=== PATIENT | female | born 1960 | race Caucasian/White ===

== ENCOUNTER 2017-10-20 17:05 | Emergency (ER) | payer OTHER ==
[2017-10-20 17:23] VITALS: BP 141/85
[2017-10-20] MEDS ORDERED: Aspirin 81 mg CHEW TAB* 81 MG TAB.CHEW PO ONE (17:50)
--- NOTE | 2017-10-20 18:46 | UC ---
Rashawn Knight Nikita, scribed for Eduardo Griffith MD on 10/20/17 at 1740 . Cardiac HPI - HPI Summary HPI Summary: This patient is a 57 year old F presenting to [facility] with a chief complaint of retroexternal chest pressure since yesterday. The patient has been helping her daughter move her stuff into storage and from that she has developed this chest pressure. The CC is described as intermittent starting last night. The patient rates the pain 1/10 in severity. Symptoms aggravated by exertion. Symptoms alleviated by rest. Patient denies nausea, vomiting, and diaphoresis. The patient reports she has no PMHx except in the last couple visits to her doctor, she had increase in BP and slight increase in cholesterol without medications. - History of Current Complaint Chief Complaint: UCChestPain Stated Complaint: CHEST CONGESTION Time Seen by Provider: 10/20/17 17:26 Hx Obtained From: Patient Hx Last Menstrual Period: perimenopause Onset/Duration: Sudden Onset, Lasting Days - last night Timing: Intermittent Episodes Lasting: Current Severity: Mild Pain Intensity: 1 Chest Pain Location: Discrete at: - retroexternal chest pressure Character: Pressure/Squeezing Aggravating Factor(s): Exertion Alleviating Factor(s): Rest Associated Signs & Symptoms: Positive: Chest Pain - Patient denies nausea, vomiting, and diaphoresis. - Allergy/Home Medications Allergies/Adverse Reactions: Allergies Allergy/AdvReac Type Severity Reaction Status Date / Time No Known Allergies Allergy Verified 10/20/17 18:19 Home Medications: Home Medications Aspirin mg PO 10/20/17 [History] Cetirizine HCl [Zyrtec] 10/20/17 [History] Famotidine [Acid Controller] 20 mg PO 10/20/17 [History] Fluticasone Propionate [Flovent Hfa] 10/20/17 [History Confirmed 10/20/17] Multivit-Min/Iron Fum/Folic AC [Xykia-Vrwcybh-Qkpzqzed Tablet] 10/20/17 [ History] PMH/Surg Hx/FS Hx/Imm Hx Endocrine History: Other Other Endocrine History: No DM Respiratory History: Asthma - Surgical History Surgery Procedure, Year, and Place: total hip replacement june 19, 2017. total hip September 2013 - Family History Known Family History: Negative: Diabetes - Social History Alcohol Use: Daily Substance Use Type: None Smoking Status (MU): Never Smoked Tobacco Review of Systems Constitutional: Other - denies diaphoresis Cardiovascular: Chest Pain - R-sided, pressure, radiating to mid chest Gastrointestinal: Other - Patient denies nausea and vomiting All Other Systems Reviewed And Are Negative: Yes Physical Exam - Summary Physical Exam Summary: VITAL SIGNS: Reviewed. GENERAL: ~Patient is a well-developed and nourished FEMALE who is lying comfortable in the stretcher. ~Patient is not in any acute respiratory distress. HEAD AND FACE: Normocephalic EYES: PERRLA, EOMI x 2. EARS: Hearing grossly intact. MOUTH: Oropharynx within normal limits. NECK: Supple, trachea is midline, no adenopathy, no JVD, no carotid bruit. CHEST: Symmetric, no tenderness at palpation LUNGS: Clear to auscultation bilaterally. No wheezing or crackles. CVS: Regular rate and rhythm, S1 and S2 present, no murmurs or gallops appreciated. ABDOMEN: Soft, non-tender. Bowel sounds are normal. No abdominal abnormal pulsations. EXTREMITIES: Full ROM in all major joints, no edema, no cyanosis or clubbing. NEURO: Alert and oriented x 3. No acute neurological deficits. Speech is normal and follows commands. SKIN: Dry and warm Triage Information Reviewed: Yes Vital Signs: Initial Vital Signs Temp 97.6 F 10/20/17 17:16 Pulse 69 10/20/17 17:16 Resp 16 10/20/17 17:16 BP 141/85 10/20/17 17:16 Pulse Ox 100 10/20/17 17:16 Vital Signs Reviewed: Yes Diagnostics - EKG Cardiac Rate: NL - Taken at 1529 reveals NSR at 62 bpm andST depression in aVF, II, and v4-v6. - Assessment/Plan Course Of Treatment: This patient is a 57 year old F presenting to [facility] with a chief complaint of retroexternal chest pressure since yesterday. EKG shows ST depressions in leads II, aVF, and v4-v6. Different compared to an EKG done on 03/26, shown on her phone. Because of these sx and abnormal EKG, the patient was advised to go to the ER. She declined ambulance, and will drive herself. Vital signs are stable. Talked to Dr. Lerma about the patients case and she will receive the patient in [facility]. The pt is hemodynamically stable, alert and oriented x3. The patient was found to have increased BP in UC. Plan of care was discussed with the patient, and patient understands and agrees. All questions were answered to patient satisfaction. There were no further complaints or concerns. Patient understand the risk of driving herself to the ED, she understands and agrees to declined ambulance. She left before signing the AMA form. - Clinical Impression Provider Diagnoses: chest pain - Physician Notifications Discussed Patient Care With: Mile Lerma Time Discussed With Above Provider: 17:52 Instructed by Provider To: Other - Talked to ___ about the patient's case and [facility] Discharge - Sign-Out/Discharge Documenting (check all that apply): Discharge/Admit/Transfer - Discharge Plan Condition: Stable Disposition: HOME Patient Education Materials: Chest Pain (ED) Referrals: No Primary Care Phys,NOPCP [Primary Care Provider] - Additional Instructions: Patient will be discharged to ED for further assessment, Declined ambulance. - Billing Disposition and Condition Condition: STABLE Disposition: HOME The documentation as recorded by the Rashawn ortiz Nikita accurately reflects the service I personally performed and the decisions made by , Eduardo Griffith MD.
== END 2017-10-20 17:56 | disposition home or self-care (01) ==
LOC: UCEAST 17:05
DX: R07.89 Other chest pain (principal); J45.909 Unspecified asthma, uncomplicated; Z79.82 Long term (current) use of aspirin; Z96.649 Presence of unspecified artificial hip joint
CPT/HCPCS: 93005; 99202; A9270-GY; G0463

== ENCOUNTER 2017-10-20 18:12 | Emergency (ER) | payer OTHER ==
[2017-10-20] MEDS ORDERED: NS 0.9% 1000 ML* 1,000 ML IV SCH (18:30)
[2017-10-20 18:55] LABS: ABS Basophils 0.1 10^3/ul (0-0.2); ABS Eosinophils 0.1 10^3/ul (0-0.6); ABS Monocytes 0.5 10^3/ul (0-0.8); ABS Neutrophils 4.6 10^3/ul (1.5-7.7); ABS Nucleated RBC 0 10^3/ul; Eosinophil % 1.1 % (0-6); Hematocrit 41 % (35-47); Hemoglobin 13.8 g/dl (12.0-16.0); Lymphocyte % 27.7 % (25-47); Mean Corpuscular HGB Conc 33 g/dl (31-36); Mean Corpuscular Hemoglobin 31 pg (27-31); Mean Corpuscular Volume 92 fL (80-97); Mean Platelet Volume 8.2 um3 (7.4-10.4); Nucleated Red Blood Cells % 0; Platelet Count 284 10^3/ul (150-450); Red Blood Count 4.49 10^6/ul (4.0-5.4); Red Cell Distribution Width 13 % (10.5-15); White Blood Count 7.2 10^3/ul (3.5-10.8)
[2017-10-20 19:04] LABS: INR 0.87 (0.77-1.02)
[2017-10-20 19:14] LABS: EGFR Non-African American 88.3 (>60)
--- NOTE | 2017-10-20 19:31 | RAD ---
Indication: Chest pressure. Single frontal view of the chest performed at 1917 hours was reviewed. No prior study is available for comparison. No mediastinal shift is noted. Heart is of normal size and configuration. Lung menard appear clear. IMPRESSION: NO ACTIVE CARDIOPULMONARY DISEASE IS NOTED.
[2017-10-20 20:06] LABS: Urine Appearance Clear; Urine Blood 1+ (Negative); Urine Color Straw; Urine Ketones Negative (Negative); Urine Protein Negative (Negative); Urine Specific Gravity 1.006 (1.010-1.030); Urine Urobilinogen Negative (Negative)
[2017-10-20] MEDS ORDERED: Potassium Chlor TAB* 20 MEQ TAB.ER PO ONE (20:52)
--- NOTE | 2017-10-20 23:29 | ED ---
Rosa Knight Elizabeth, scribed for Mile Lerma MD on 10/20/17 at 1857 . HPI Chest Pain - HPI Summary HPI Summary: This patient is a 57 year old F presenting to [facility] after driving herself from upon referral from Dr. Griffith at Urgent Care with a chief complaint of intermittent right-sided chest pain since 1 day ago. Patient describes the pain as pressure. She presented to today because the pain became more central and she wanted to have it evaluated before flying home to [place] tomorrow. Dr. Griffith noted an abnormal EKG with ST depressions when compared with an EKG from which pt had as a photo on her phone. The patient rates the pain 10 in severity. Symptoms aggravated by nothing. Symptoms alleviated by famotidine which she takes as needed for GERD. Patient reports the pain felt like acid reflux. Patient reports wheezing 1 day ago and hx asthma. Patient notes that her cholesterol is newly elevated and she does not typically have hypertension but on the last few visits to her doctor had elevated BP without RX for HTN. Pt had right hip replacement surg 06/2017 without complication. Pt is from [place], is here visiting her daughter in college. She flew here on 10/18/17, denies calf pain or SOB. No hx DVT . Patient had a cardiac stress test done in 2015 and results were normal. Patient is perimenopausal and her LNMP was 05/2017. Patient notes that she takes baby ASA daily and asthma medications. Patient was given x3 doses of ASA at earlier today. When in room, BP was 174/95, HR was 69 BPM, and O2 saturation was 100%. - History of Current Complaint Chief Complaint: EDChestPainROMI Time Seen by Provider: 10/20/17 18:32 Hx Obtained From: Patient, Medical Records, Other: - Dr. Griffith, personal conversation Hx Last Menstrual Period: perimenopause Onset/Duration: Started Days Ago - 1 day ago, Atraumatic, Still Present, Worse Since Timing: Intermittent, Lasting Hours Initial Severity: Mild Current Severity: Mild Pain Intensity: 1 Pain Scale Used: 0-10 Numeric Chest Pain Location: Mid Sternal, Right Anterior Chest Pain Radiates: No Character: Pressure/Squeezing Aggravating Factor(s): Nothing Alleviating Factor(s): Medication - famotidine Associated Signs and Symptoms: Positive: Chest Pain, Wheezing - Risk Factors Pulmonary Embolism Risk Factors: Recent Travel, Recent Surgery - hip, Jun 2017 AMI/ACS Risk Factors: Hypertension, Dyslipidemia - Allergy/Home Medications Allergies/Adverse Reactions: Allergies Allergy/AdvReac Type Severity Reaction Status Date / Time No Known Allergies Allergy Verified 10/20/17 18:19 PMH/Surg Hx/FS Hx/Imm Hx Previously Healthy: No Respiratory History: Reports: Hx Asthma GI History: Reports: Hx Gastroesophageal Reflux Disease Opthamlomology History: Denies: Hx Legally Blind EENT History: Denies: Hx Deafness - Surgical History Surgery Procedure, Year, and Place: total hip replacement june 19, 2017. total hip September 2013. repair of deviated septum. benign breast biopsy x2. labial excision Infectious Disease History: No Infectious Disease History: Denies: Traveled Outside the [place] in Last 30 Days - Family History Known Family History: Positive: Cardiac Disease - father ( age 66) SC in his mid 50's-early 60s, father was a smoker, Hypertension - mother, Other - breast cancer (mother) - Social History Occupation: Employed Full-time Alcohol Use: Daily Substance Use Type: Reports: None Smoking Status (MU): Never Smoked Tobacco Review of Systems Constitutional: Negative Negative: Epistaxis Positive: Chest Pain Positive: Other - wheezing Negative: Vomiting Skin: Negative Negative: Headache Psychological: Normal All Other Systems Reviewed And Are Negative: Yes Physical Exam - Summary Physical Exam Summary: Appearance: Well-appearing, mild pain distress, Well-nourished Skin: Warm, color reflects adequate perfusion Head: Normal Head/Face inspection, Atraumatic Eyes: Conjunctiva clear ENT: Normal inspection Neck: Supple, no nodes, no JVD. Respiratory: Lungs clear, Normal breath sounds, no respiratory distress Cardio: RRR, No murmur, pulses normal, brisk capillary refill Abdomen: soft, nontender, no masses Bowel sounds: present Musculoskeletal: Strength Intact/ ROM intact. No calf tenderness. No edema. Psychological: Normal Neuro: Alert, muscle tone normal, no focal deficit Triage Information Reviewed: Yes Vital Signs On Initial Exam: Initial Vitals Temp Pulse Resp BP Pulse Ox 97.5 F 72 18 176/93 99 10/20/17 18:16 10/20/17 18:16 10/20/17 18:16 10/20/17 18:16 10/20/17 18:16 Vital Signs Reviewed: Yes Diagnostics - Vital Signs Vital Signs Temp Pulse Resp BP Pulse Ox 10/20/17 18:16 97.5 F 72 18 176/93 99 - Laboratory Lab Results: Lab Results 10/20/17 10/20/17 10/20/17 Range/Units 18:46 18:46 18:46 WBC 7.2 (3.5-10.8) 10^3/ul RBC 4.49 (4.0-5.4) 10^6/ul Hgb 13.8 (12.0-16.0) g/dl Hct 41 (35-47) % MCV 92 (80-97) fL MCH 31 (27-31) pg MCHC 33 (31-36) g/dl RDW 13 (10.5-15) % Plt Count 284 (150-450) 10^3/ul MPV 8.2 (7.4-10.4) um3 Neut % (Auto) 63.4 (38-83) % Lymph % (Auto) 27.7 (25-47) % Arenac % (Auto) 6.8 (0-7) % Eos % (Auto) 1.1 (0-6) % Baso % (Auto) 1.0 (0-2) % Absolute Neuts (auto) 4.6 (1.5-7.7) 10^3/ul Absolute Lymphs (auto) 2.0 (1.0-4.8) 10^3/ul Absolute Monos (auto) 0.5 (0-0.8) 10^3/ul Absolute Eos (auto) 0.1 (0-0.6) 10^3/ul Absolute Basos (auto) 0.1 (0-0.2) 10^3/ul Absolute Nucleated RBC 0 10^3/ul Nucleated RBC % 0 INR (Anticoag Therapy) (0.77-1.02) APTT (26.0-36.3) seconds D-Dimer, Quantitative (Less Than 230) ng/mL Sodium 140 (139-145) mmol/L Potassium 3.4 L (3.5-5.0) mmol/L Chloride 103 (101-111) mmol/L Carbon Dioxide 28 (22-32) mmol/L Anion Gap 9 (2-11) mmol/L BUN 15 (6-24) mg/dL Creatinine 0.69 (0.51-0.95) mg/dL Est GFR ( Amer) 113.6 (>60) Est GFR (Non-Af Amer) 88.3 (>60) BUN/Creatinine Ratio 21.7 H (8-20) Glucose 92 (70-100) mg/dL Lactic Acid 0.6 (0.5-2.0) mmol/L Calcium 9.6 (8.6-10.3) mg/dL Magnesium 2.1 (1.9-2.7) mg/dL Total Bilirubin 1.00 (0.2-1.0) mg/dL AST 19 (13-39) U/L ALT 13 (7-52) U/L Alkaline Phosphatase 56 (34-104) U/L Total Creatine Kinase 61 (10-223) U/L CK-MB (CK-2) 1.1 (0.6-6.3) ng/mL Troponin I 0.00 (<0.04) ng/mL C-Reactive Protein < 1.00 (< 5.00) mg/L B-Natriuretic Peptide ( - 100) pg/mL Total Protein 7.1 (6.4-8.9) g/dL Albumin 4.4 (3.2-5.2) g/dL Globulin 2.7 (2-4) g/dL Albumin/Globulin Ratio 1.6 (1-3) Lipase 45 (11.0-82.0) U/L TSH 2.10 (0.34-5.60) mcIU/mL Urine Color Urine Appearance Urine pH (5-9) Ur Specific Browning (1.010-1.030) Urine Protein (Negative) Urine Ketones (Negative) Urine Blood (Negative) Urine Nitrate (Negative) Urine Bilirubin (Negative) Urine Urobilinogen (Negative) Ur Leukocyte Esterase (Negative) Urine WBC (Auto) (Absent) Urine RBC (Auto) (Absent) Ur Squamous Epith Cells (Absent) Urine Bacteria (Absent) Urine Glucose (Negative) 10/20/17 10/20/17 10/20/17 Range/Units 18:46 18:46 19:57 WBC (3.5-10.8) 10^3/ul RBC (4.0-5.4) 10^6/ul Hgb (12.0-16.0) g/dl Hct (35-47) % MCV (80-97) fL MCH (27-31) pg MCHC (31-36) g/dl RDW (10.5-15) % Plt Count (150-450) 10^3/ul MPV (7.4-10.4) um3 Neut % (Auto) (38-83) % Lymph % (Auto) (25-47) % Arenac % (Auto) (0-7) % Eos % (Auto) (0-6) % Baso % (Auto) (0-2) % Absolute Neuts (auto) (1.5-7.7) 10^3/ul Absolute Lymphs (auto) (1.0-4.8) 10^3/ul Absolute Monos (auto) (0-0.8) 10^3/ul Absolute Eos (auto) (0-0.6) 10^3/ul Absolute Basos (auto) (0-0.2) 10^3/ul Absolute Nucleated RBC 10^3/ul Nucleated RBC % INR (Anticoag Therapy) 0.87 (0.77-1.02) APTT 30.6 (26.0-36.3) seconds D-Dimer, Quantitative < 200 (Less Than 230) ng/mL Sodium (139-145) mmol/L Potassium (3.5-5.0) mmol/L Chloride (101-111) mmol/L Carbon Dioxide (22-32) mmol/L Anion Gap (2-11) mmol/L BUN (6-24) mg/dL Creatinine (0.51-0.95) mg/dL Est GFR ( Amer) (>60) Est GFR (Non-Af Amer) (>60) BUN/Creatinine Ratio (8-20) Glucose (70-100) mg/dL Lactic Acid (0.5-2.0) mmol/L Calcium (8.6-10.3) mg/dL Magnesium (1.9-2.7) mg/dL Total Bilirubin (0.2-1.0) mg/dL AST (13-39) U/L ALT (7-52) U/L Alkaline Phosphatase (34-104) U/L Total Creatine Kinase (10-223) U/L CK-MB (CK-2) (0.6-6.3) ng/mL Troponin I (<0.04) ng/mL C-Reactive Protein (< 5.00) mg/L B-Natriuretic Peptide 75 ( - 100) pg/mL Total Protein (6.4-8.9) g/dL Albumin (3.2-5.2) g/dL Globulin (2-4) g/dL Albumin/Globulin Ratio (1-3) Lipase (11.0-82.0) U/L TSH (0.34-5.60) mcIU/mL Urine Color Straw Urine Appearance Clear Urine pH 5.0 (5-9) Ur Specific Browning 1.006 L (1.010-1.030) Urine Protein Negative (Negative) Urine Ketones Negative (Negative) Urine Blood 1+ A (Negative) Urine Nitrate Negative (Negative) Urine Bilirubin Negative (Negative) Urine Urobilinogen Negative (Negative) Ur Leukocyte Esterase 2+ A (Negative) Urine WBC (Auto) 1+(6-10/hpf) A (Absent) Urine RBC (Auto) Trace(0-2/hpf) (Absent) Ur Squamous Epith Cells Present A (Absent) Urine Bacteria Absent (Absent) Urine Glucose Negative (Negative) 10/20/17 Range/Units 21:17 WBC (3.5-10.8) 10^3/ul RBC (4.0-5.4) 10^6/ul Hgb (12.0-16.0) g/dl Hct (35-47) % MCV (80-97) fL MCH (27-31) pg MCHC (31-36) g/dl RDW (10.5-15) % Plt Count (150-450) 10^3/ul MPV (7.4-10.4) um3 Neut % (Auto) (38-83) % Lymph % (Auto) (25-47) % Arenac % (Auto) (0-7) % Eos % (Auto) (0-6) % Baso % (Auto) (0-2) % Absolute Neuts (auto) (1.5-7.7) 10^3/ul Absolute Lymphs (auto) (1.0-4.8) 10^3/ul Absolute Monos (auto) (0-0.8) 10^3/ul Absolute Eos (auto) (0-0.6) 10^3/ul Absolute Basos (auto) (0-0.2) 10^3/ul Absolute Nucleated RBC 10^3/ul Nucleated RBC % INR (Anticoag Therapy) (0.77-1.02) APTT (26.0-36.3) seconds D-Dimer, Quantitative (Less Than 230) ng/mL Sodium (139-145) mmol/L Potassium (3.5-5.0) mmol/L Chloride (101-111) mmol/L Carbon Dioxide (22-32) mmol/L Anion Gap (2-11) mmol/L BUN (6-24) mg/dL Creatinine (0.51-0.95) mg/dL Est GFR ( Amer) (>60) Est GFR (Non-Af Amer) (>60) BUN/Creatinine Ratio (8-20) Glucose (70-100) mg/dL Lactic Acid (0.5-2.0) mmol/L Calcium (8.6-10.3) mg/dL Magnesium (1.9-2.7) mg/dL Total Bilirubin (0.2-1.0) mg/dL AST (13-39) U/L ALT (7-52) U/L Alkaline Phosphatase (34-104) U/L Total Creatine Kinase (10-223) U/L CK-MB (CK-2) (0.6-6.3) ng/mL Troponin I 0.00 (<0.04) ng/mL C-Reactive Protein (< 5.00) mg/L B-Natriuretic Peptide ( - 100) pg/mL Total Protein (6.4-8.9) g/dL Albumin (3.2-5.2) g/dL Globulin (2-4) g/dL Albumin/Globulin Ratio (1-3) Lipase (11.0-82.0) U/L TSH (0.34-5.60) mcIU/mL Urine Color Urine Appearance Urine pH (5-9) Ur Specific Browning (1.010-1.030) Urine Protein (Negative) Urine Ketones (Negative) Urine Blood (Negative) Urine Nitrate (Negative) Urine Bilirubin (Negative) Urine Urobilinogen (Negative) Ur Leukocyte Esterase (Negative) Urine WBC (Auto) (Absent) Urine RBC (Auto) (Absent) Ur Squamous Epith Cells (Absent) Urine Bacteria (Absent) Urine Glucose (Negative) Result Diagrams: 10/20/17 18:46 10/20/17 18:46 Lab Statement: Any lab studies that have been ordered have been reviewed, and results considered in the medical decision making process. - Radiology CXR Xray Interpretation: No Acute Changes - IMPRESSION: NO ACTIVE CARDIOPULMONARY DISEASE IS NOTED. Dr. Lerma has reviewed this report. Radiology Interpretation Completed By: Radiologist - EKG 18:28 Cardiac Rate: NL - at 72 BPM EKG Rhythm: Sinus Rhythm Ectopy: None EKG Interpretation: nml AVIVCT, nml QTC, nml axis, and ST depression of 1mm V4- V6 Re-Evaluation - Re-Evaluation First Eval Re-Evaluation Time: 22:00 Change: Improved Comment: no chest pain. Given results of tests. In discussing discharge, I offered to call pt's sem manager. Second Eval Re-Evaluation Time: 23:30 Change: Unchanged Comment: Pt remains pain free. Shared decision making regarding chest pain risk and diff dx. Pt's sem manager not iphone developer for himself. Cardiology iphone developer advises consult. After discussing Dr. Jacobsen's advice and discussing WENDY and HEART scores, pt is agreeable to discharge. Chest Pain Course/Dx - Course Course Of Treatment: An 18:28 EKG reveals sinus rhythm at 72 bpm, nml AVIVCT, nml QTC, nml axis, and minimal ST depression of 0.5-1mm V4-V6, unchanged from UC.(Computer read EKG as normal). CXR reveals, per radiologist, no active cardiopulmonary disease. Dr. Lerma has reviewed this radiology report. Potassium 3.4, replaced orally with 40 mEq x 1. Troponin x 2 are zero, d dimer is less than 200. Pt is pain free spontaneously at the time of discharge. Dr Lerma attempted to call pt's sem manager in [facility] at [phone], Vini Murray, who did a negative stress test on patient 2 years ago, and pt has not seen him in [address] Murray was not iphone developer. His partner, ?Dr. Goldsmith? (I could not hear his name well) was iphone developer. He did not know the patient and suggested a cardiology consult if I did not feel comfortable with discharge. I spoke with Dr. Jacobsen, hospitalist iphone developer, who concurred with discharge. Pt has a WENDY score of 2, and a HEART score of 3, even with "overestimation" of her risk factors, counting hypertension and hyperlipidemia as risk factors when she is not on medication for these disorders and has elevated BP in the ED, and reports a cholesterol greater than 200, and her father of heart disease at age 66, with his first SC at age 55, but he was a heavy smoker. In the ED course the patient was given IV fluids and Klor Con ER PO. Patient is diagnosed with chest pain. Patient will be discharged home with advice to take her famotidine as directed and follow up from Dr. Murray,her sem manager in [place], as soon as possible. Pt is advised that she is low risk by both WENDY score and HEART score, but that she is not zero risk. Pt is advised that if she can fly home via a route that has shorter times in the air, this would be better for avoiding possible DVT. Despite risks of recent travel and hip surg in Jun 2017, pt has no SOB, tachypnea, hypoxia, or calf pain and d dimer is less than 200, so doubt PE. The patient is advised to return by ambulance if any return of chest pain. Pt is agreeable with this plan. - Chest Pain Differential Diagnosis/HQI/PQRI: Acute SC, ACS, Angina, Chest Wall, GI Disease, Pulmonary Embolism - Diagnoses Provider Diagnoses: Chest pain, Hypokalemia - Provider Notifications Discussed Care Of Patient With: Jorje Jacobsen - concurs with DC after reviewing data, not examining the patient Time Discussed With Above Provider: 23:10 Discharge - Sign-Out/Discharge Documenting (check all that apply): Discharge/Admit/Transfer - home - Discharge Plan Condition: Stable Disposition: HOME Patient Education Materials: Chest Pain (ED) Forms: *Gen. Provider Communication Referrals: Non Staff,Doctor [Primary Care Provider] - Additional Instructions: Your troponins x 2 (3 hrs apart) and your d-dimer were normal. We have given you a copy of your EKG. Your chest xray showed no active disease. We do not think your chest pain needs emergency treatment at this time. We gave you one dose of potassium 40mEq for potassium level that is slightly low at 3.4. Your urine was sent for culture. Those results are still pending. We will let you know if you need any further treatment based on the results of the urine culture. You should follow up with your doctor in [place] as soon as possible. You may fly tomorrow if you do not have worsening chest pain. Return to the ER if you have new or worsening symptoms. - Billing Disposition and Condition Condition: STABLE Disposition: HOME The documentation as recorded by the Rosa ortiz Elizabeth accurately reflects the service I personally performed and the decisions made by me, Mile Lerma MD.
[2017-10-21 00:04] VITALS: BP 161/88
== END 2017-10-20 23:45 | disposition home or self-care (01) ==
LOC: ED 18:12
DX: R07.9 Chest pain, unspecified (principal); E87.6 Hypokalemia; I10 Essential (primary) hypertension; E78.5 Hyperlipidemia, unspecified; Z82.49 Family history of ischemic heart disease and other diseases of the circulatory system
CPT/HCPCS: 36415; 71045; 80053; 81003; 81015; 82550; 82553; 83605; 83690; 83735; 83880; 84443; 84484; 85025; 85379; 85610; 85730; 86140; 87086; 93005; 99283; A9270-GY